=== PATIENT | male | born 1975 | race Caucasian/White ===

== ENCOUNTER → 2017-05-25 | Outpatient (CLI) | payer OTHER ==
[~2017-05-25] MED LIST: ALT/10 PO; AMLH/550 PO; AMLO10TA2 PO; ASPI81TA28 PO; FLX10 PO; METO100T14 PO
== END | disposition home or self-care (01) ==
LOC: C.LAB 13:27
PROVIDERS: ATTEND Physician Assistant
DX: R07.9 Chest pain, unspecified (principal)

== ENCOUNTER → 2017-09-24 | Outpatient (CLI) | payer OTHER ==
--- NOTE | 2017-09-24 09:21 | DIAGNOSTIC IMAGING REPORT ---
L LOWER EXT JOINT WITHOUT CLINICAL HISTORY: 42 years-old Male presenting with LEFT HIP PAIN. TECHNIQUE: Multisequence, multiplanar MR imaging of the left hip was performed without the use of intravenous contrast. IV contrast: None. COMPARISON: Plain radiographs from 09/21/2017. FINDINGS: Localizer images: Unremarkable. No bony edema. No focal articular cartilage defect. Increased signal intensity along the superior aspect of the left labrum suggests degenerative change. Trace hip joint fluid, which is symmetric. Normal muscle bulk and muscle signal intensity. Degenerative changes of the lower lumbar spine. Sacroiliac joints normal. Limited ensure pelvic evaluation demonstrates normal prostate and seminal vesicles. Bilateral T2 hyperintense, T1 hypointense masses or collections medial to the external iliac veins. The collection on the right measures 4.1 x 2.1 cm, and the collection on the left measures 5.3 x 2.4 cm. No contrast was administered to determine if these are cystic or solid. Multiple additional prominent external iliac lymph nodes evident. These abnormalities may represent enlarged lymph nodes versus fluid collections. No inguinal lymphadenopathy. IMPRESSION: 1. Suspected degenerative changes of the superior labrum of the left hip. No other significant abnormality of the left hip. 2. Bilateral external iliac pathologically enlarged lymph nodes versus fluid collections. Given the presence of several additional prominent lymph nodes, these are suspected to also represent lymph nodes. Correlate for underlying malignancy or lymphoproliferative disease. Confirmation of their solid nature recommended with contrast-enhanced CT. These may potentially be amenable to ultrasound or CT-guided biopsy. The report will be called/faxed according to standard departmental protocol. Electronically signed by: Tony Gaviria M.D. 09/24/2017 9:20 AM Dictated Date/Time: 09/24/2017 9:12 AM
== END | disposition home or self-care (01) ==
LOC: C.MRIBC 08:21
PROVIDERS: ATTEND Orthopaedic Surgery
DX: M25.552 Pain in left hip (principal); R59.1 Generalized enlarged lymph nodes

== ENCOUNTER → 2017-11-18 | Outpatient (CLI) | payer OTHER ==
--- NOTE | 2017-11-18 10:40 | DIAGNOSTIC IMAGING REPORT ---
FLUOROSCOPIC GUIDED LEFT HIP STEROID INJECTION FLUOROSCOPY TIME: 12 seconds. HISTORY: Left hip pain.. PROCEDURE: After obtaining written informed consent, the patient was placed supine on the fluoroscopy table. A suitable site for needle insertion was marked using fluoroscopic guidance. The left hip was prepped and draped in the usual sterile fashion. 1% lidocaine was used for skin, subcutaneous and deep soft tissue anesthesia. Under intermittent fluoroscopic guidance, a 22 gauge x 3.5 inch spinal needle was inserted into the left hip joint. 2 cc of Optiray 300 was injected to confirm the intra-articular location. This is followed by a mixture of 5cc of 0.5% bupivacaine and 2 cc of betamethasone at the request of the referring physician. The needle was then removed. There were no apparent complications. IMPRESSION: Fluoroscopic-guided left hip steroid injection without immediate complication. Electronically signed by: Kaiden Ahumada M.D. 11/18/2017 10:38 AM Dictated Date/Time: 11/18/2017 10:38 AM
== END | disposition home or self-care (01) ==
LOC: C.RADBC 09:48
PROVIDERS: ATTEND Orthopaedic Surgery
DX: M16.12 Unilateral primary osteoarthritis, left hip (principal)

== ENCOUNTER → 2018-03-23 | Outpatient (CLI) | payer OTHER ==
[~2018-03-23] MED LIST changes: +ATOR-54 PO
--- NOTE | 2018-03-24 06:27 | SPLIT NIGHT TECHNICIAN REPORT ---
[facility] Split Night Polysomnogram - Meteorological Technician Report Study date: 03/23/2018 Referring Physician: Dr. Purvi Mcintyre Name: GABRIELLE LUEVANO Meteorological Technician: MYA Santos. Date of : 1975 Height: 42 years, Height 5' 9.29" Sex: Male Weight: 328 lbs Age: 42 Neck Circum: 20 inches BMI: Medications: 48.03 Amlodipine 10 mg, Aspirin 81 mg, Lipitor 10 mg, Flexeril 10 mg, Metoprolol 50 mg, Pantoprazole 40 mg, Ramipril 10 mg, Patient History 42 yr. old male here for a modified sleep study if AHI >10. Patient is currently on 12 CWP. Patient complains of PLMD. He has gained weight since his last study. ESS 03/02. Parameters Monitored NPSG: E1-M2, E2-M1, Fp1-M2, Fp2-M1, F3-M2, F4-M2, F4-M1, C3-M2, C4-M2, C4-M1, O1-M2, O2-M2, O2-M1, T3-M2, T4-M1, P3-M2, P4-M1, CHIN1, CHIN2, HR, EKG, Legs, PFLOW, SNOR, FLOW, CFLOW, Tidal Volume, THOR, ABDO, SpO2, PLTH, CPRESS, ETCO2 Wave, ETCO2, pH SLEEP SUMMARY DATA DIAGNOSTIC TREATMENT Lights Out: 9:39:34 PM 11:47:34 PM Lights On: 11:40:34 PM 6:13:04 AM Total Recording Time (TRT): 121.5 min. 386.0 min. Total Sleep Time (TST): 75.5 min. 366.5 min. NREM Time: 75.5 min. 274.5 min. REM Time: 0.0 min. 92.0 min. Sleep Period Time (SPT): 101.5 min. 381.0 min. Sleep Efficiency (SE): 62 % 95 % Sleep Latency: 15.5 min. 4.5 min. Arousal Index: 25.4 5.7 PAP Treatment Levels: 6, 7, 8, 9, 10, 11, 12, 13, 14, 15 * Optimal Pressure(s) SLEEP STAGING DATA DIAGNOSTIC TREATMENT Duration (min) TST % Duration (min) TST % Stage Wake: 46.0 min. -- 18.5 min. -- WASO: 30.0 min. -- 14.5 min. -- NREM: 75.5 min. 100 % 274.5 min. 75 % Stage N1: 20.5 min. 27 % 15.0 min. 4 % Stage N2: 55.0 min. 73 % 156.0 min. 43 % Stage N3: 0.0 min. 0 % 103.5 min. 28 % REM: 0.0 min. 0 % 92.0 min. 25 % POSITIONAL DATA Event Count Index Event Count Index Supine: N/A N/A 36 9.5 Supine NREM: N/A N/A 4 1.4 Supine REM: N/A N/A 32 31 Non-Supine: 103 81.9 9 3.9 Non-Supine NREM: 103 81.9 3 1.7 Non-Supine REM: N/A N/A 6 11.6 AROUSAL SUMMARY DATA: Event Count Index Event Count Index Apnea Arousals: 1 3.2 0 0.2 Hypopnea Arousals: 8 6.4 0 0.0 Snore Arousals: 9 7.2 19 3.1 PLM Arousals: 10 7.9 1 0.2 Non-Specific Arousals: 1 0.8 4 0.7 Total Arousals: 32 25.4 35 5.7 MYOCLONUS (PLM) Event Count Index Event Count Index PLM: 30 23.8 58 9.5 PLM AROUSAL: 10 7.9 1 0.2 PLM W/O AROUSAL 30 23.8 57 9.3 PLM W/RESP EVENT 5 0.0 0 0.0 MYOCLONUS (PLM) Event Count Index Event Count Index LM: 4 46.1 25 4.1 LM AROUSAL: 4 3.2 11 1.8 LM W/O AROUSAL LM W/RESP EVENT LM NON SPECIFIC 36 28.6 70 11.5 HEART RATE DATA DIAGNOSTIC TREATMENT Sleep (bpm): 69 63 REM (bpm): N/A 89 NREM (bpm): 89 90 Tachycardia Count: 0 0 Tachycardia Duration: 0.00 0 Bradycardia Count: 0 0 Bradycardia Duration: 0.00 0 DIAGNOSTIC PORTION TREATMENT PORTION RESPIRATORY DATA Event Count Index Event Count Index AHI: -- 81.9 -- 7.4 RDI: -- 81.9 -- 7 Obstructive Apnea: 4 3.2 0 0.0 Central Apnea: 0 0.0 1 0.2 Mixed Apnea: 0 0.0 0 0.0 Hypopnea: 99 78.7 44 7.2 RERA: 0 0.0 0 0.0 Total Apneas: 4 3.2 1 0.2 RESPIRATORY DATA REM NREM SLEEP REM NREM SLEEP Supine Position: Obstructive Apneas: N/A N/A N/A 0 0 0 Central Apneas: N/A N/A N/A 0 1 1 Mixed Apneas: N/A N/A N/A 0 0 0 Hypopneas: N/A N/A N/A 32 3 35 RERA N/A N/A N/A 0 0 0 Total Supine Events: N/A N/A N/A 32 4 36 Supine AHI: N/A N/A N/A 31 1.4 9.5 Supine RDI: N/A N/A N/A 31.5 1.4 9.5 REM NREM SLEEP REM NREM SLEEP Non-Supine Position: Obstructive Apneas: N/A 4 4 0 0 0 Central Apneas: N/A 0 0 0 0 0 Mixed Apneas: N/A 0 0 0 0 0 Hypopneas: N/A 99 99 6 3 9 RERA N/A 0 0 0 0 0 Total Supine Events: N/A 103 103 6 3 9 Supine AHI: N/A 81.9 81.9 11.6 1.7 3.9 Supine RDI: N/A 81.9 81.9 11.6 1.7 3.9 OXYGEN DESTAURATION DATA: Event Count Index Event Count Index REM Desaturations: N/A N/A 39 25.4 NREM Desaturations: 125 99.3 12 2.6 SNORE DATA DIAGNOSTIC TREATMENT Snore Time: 11.3 11:52:04 PM Snore TST%: 3 7 Snore Arousal Count: 9 19 Snore Arousal Index: 7.2 3.1 Desaturation Event Summary: Minimum %SpO2 Event Count Mean/Min/Max Duration(sec.) Desaturation Index % Time In Bed > 90 151 19.1 / 4.5 / 60.0 38.1 46.9 86 - 90 139 15.8 / 4.5 / 57.8 33.3 49.5 81 - 85 2 25.5 / 9.0 / 42.0 7.0 3.4 76 - 80 0 N/A 0.0 0.2 71 - 75 0 N/A 0.0 0.0 66 - 70 0 N/A 0.0 0.0 61 - 65 0 N/A 0.0 0.0 56 - 60 0 N/A 0.0 0.0 51 - 55 0 N/A 0.0 0.0 < 50 0 N/A 0.0 0.0 OXYGEN SATURATION DATA DIAGNOSTIC TREATMENT SpO2 Mean Sleep: 89 % 90 % SpO2 Mean REM: N/A % 89 % SpO2 Mean NREM: 89 % 90 % SpO2 Minimum Sleep: 81 % 78 % SpO2 Minimum REM: N/A % 78 % SpO2 Minimum NREM: 81 % 84 % Time Below 90% (TST): 38.6 126.6 Time Below 88% (TST): 20.8 43.8 Total REM NREM Awake <50% 0.0 min. 0.0 min. 0.0 min. 0.0 min. 51 - 60% 0.0 min. 0.0 min. 0.0 min. 0.0 min. 61 - 70% 0.0 min. 0.0 min. 0.0 min. 0.0 min. 71 - 80% 0.8 min. 0.8 min. 0.0 min. 0.0 min. 81 - 90% 267.7 min. 58.6 min. 188.6 min. 20.6 min. 91 - 100% 237.5 min. 32.6 min. 161.4 min. 43.4 min. Average 90 89 90 91 Minimum SpO2 78 78 81 83 Desaturation Event Index 23.8 25.4 23.5 26.3 # Desat. Events below 89% 171 31 122 18 Time(%) with Saturation below 89% 22.6 5.9 15.5 1.3 Time(min.) with Saturation below 89% 114.5 30.0 78.3 6.3 Recording Meteorological Technician Comments: Mr. Luevano slept in the right, left, and supine positions. No cardiac arrhythmia. PLMs noted. No bruxism noted. Snoring was noted and scored as a 3 on a scale of 0 through 5. (0=no snoring, 5=snoring loud enough to be heard through a closed door or down the [address] way) At 11:47, Mr. Luevano met specific Split-Night criteria during the diagnostic portion of this study. CPAP was initiated at +6 CMH2O and up-titrated to a level of +15 CMH2O No Cflex. A large ResMed, was used during titration. Mr. Luevano awoke to use the restroom once during the night. Mr. Luevano stated, I liked the mask I used last night The final report will be interpreted and signed by a sleep physician. The completed physician report will then be placed in the patient medical record. Therapy Event: Therapy (cm H20) 0 6 7 8 9 10 Total Time at Pressure (min.) 121.0 52.6 33.0 69.5 7.7 10.1 TST at Pressure (min.) 75.5 45.1 31.0 69.5 7.7 10.1 # Periods 1 1 1 1 1 1 Sleep Onset (min.) 15.5 4.5 0.0 0.0 0.0 0.0 REM Onset (min.) N/A N/A 10.4 57.5 0.0 0.0 Sleep Efficiency % 62 85 93 100 100 100 Wakefulness (%) 37.6 14.3 6.1 0.0 0.0 0.0 Wakefulness (min.) 45.5 7.5 2.0 0.0 0.0 0.0 NREM 1 (%) 16.9 6.7 4.5 0.0 0.0 0.0 NREM 1 (min.) 20.5 3.5 1.5 0.0 0.0 0.0 NREM 2 (%) 45.5 33.3 25.9 35.9 0.0 0.0 NREM 2 (min.) 55.0 17.5 8.5 25.0 0.0 0.0 NREM 3 (%) 0.0 45.8 31.7 46.8 0.0 0.0 NREM 3 (min.) 0.0 24.1 10.4 32.5 0.0 0.0 REM (%) 0.0 0.0 31.8 17.3 100.0 100.0 REM (min.) 0.0 0.0 10.5 12.0 7.7 10.1 # Arousals 32 2 15 5 0 0 Arousal Index 25.4 2.7 29.0 4.3 0.0 0.0 # Snore 468 405 107 728 25 4 Snore Index 371.9 539.4 207.2 628.8 194.9 23.7 AHI 81.9 0.0 3.9 5.2 39.0 23.7 AHI Supine N/A N/A 6.0 5.2 39.0 23.7 AHI Non-Supine 81.9 0.0 2.9 N/A N/A N/A NREM AHI 81.9 0.0 2.9 1.0 N/A N/A REM AHI N/A N/A 5.7 25.0 39.0 23.7 RDI 81.9 0.0 3.9 5.2 39.0 23.7 # Obstructive 4 0 0 0 0 0 # Central Ap 0 0 0 0 0 0 # Mixed 0 0 0 0 0 0 # Hypopneas 99 0 2 6 5 4 RERAS 0 0 0 0 0 0 Total Respiratory Events 103 0 2 6 5 4 Time Below SpO2 89.00% (min.) 28.4 0.0 9.4 52.7 4.9 3.2 Mean NREM SpO2 (%) 89 90 89 88 N/A N/A Mean REM SpO2 (%) N/A N/A 89 87 87 89 Mean Sleep SpO2 (%) 89 90 89 88 87 89 Min NREM SpO2 (%) 81 89 86 84 N/A N/A Min REM SpO2 (%) N/A N/A 83 78 78 84 Position Supine (min.) 0.0 0.0 10.0 69.5 7.7 10.1 Position Non-supine (min.) 75.5 45.1 20.9 0.0 0.0 0.0 LM Index Sleep 69.9 5.3 104.5 11.2 15.6 0.0 LM Index NREM 69.9 5.3 87.8 13.6 N/A N/A LM Index REM N/A N/A 137.1 0.0 15.6 0.0 Mean Heart Rate (bpm) 69 64 66 66 64 63 Min Heart Rate (bpm) 57 57 57 57 52 55 Therapy (cm H20) 11 12 13 14 15 Total Time at Pressure (min.) 36.2 45.2 14.1 69.5 47.1 TST at Pressure (min.) 36.2 45.2 13.6 66.5 41.6 # Periods 1 1 1 1 1 Sleep Onset (min.) 0.0 0.0 0.0 0.0 0.0 REM Onset (min.) 0.0 29.0 0.0 54.1 0.0 Sleep Efficiency % 100 100 96 95 88 Wakefulness (%) 0.0 0.0 3.5 4.3 11.7 Wakefulness (min.) 0.0 0.0 0.5 3.0 5.5 NREM 1 (%) 0.0 0.0 7.1 4.3 12.7 NREM 1 (min.) 0.0 0.0 1.0 3.0 6.0 NREM 2 (%) 63.5 15.5 2.7 69.3 56.2 NREM 2 (min.) 23.0 7.0 0.4 48.1 26.5 NREM 3 (%) 29.0 48.6 0.0 0.0 8.5 NREM 3 (min.) 10.5 22.0 0.0 0.0 4.0 REM (%) 7.4 35.9 86.7 22.1 10.9 REM (min.) 2.7 16.3 12.2 15.4 5.1 # Arousals 1 2 0 5 5 Arousal Index 1.7 2.7 0.0 4.5 7.2 # Snore 5 4 2 6 4 Snore Index 8.3 5.3 8.8 5.4 5.8 AHI 6.6 14.6 22.0 5.4 2.9 AHI Supine 6.6 14.6 22.0 0.0 0.0 AHI Non-Supine N/A N/A N/A 5.7 11.1 NREM AHI 1.8 2.1 0.0 3.5 0.0 REM AHI 67.0 36.9 24.5 11.7 23.3 RDI 6.6 14.6 22.0 5.4 2.9 # Obstructive 0 0 0 0 0 # Central Ap 0 1 0 0 0 # Mixed 0 0 0 0 0 # Hypopneas 4 10 5 6 2 RERAS 0 0 0 0 0 Total Respiratory Events 4 11 5 6 2 Time Below SpO2 89.00% (min.) 0.8 4.3 4.3 0.1 0.0 Mean NREM SpO2 (%) 91 91 93 92 91 Mean REM SpO2 (%) 90 89 89 92 92 Mean Sleep SpO2 (%) 90 90 90 92 91 Min NREM SpO2 (%) 88 86 91 90 89 Min REM SpO2 (%) 85 84 81 88 90 Position Supine (min.) 36.2 45.2 13.6 3.6 30.9 Position Non-supine (min.) 0.0 0.0 0.0 62.9 10.8 LM Index Sleep 1.7 2.7 0.0 2.7 5.8 LM Index NREM 1.8 2.1 0.0 3.5 4.9 LM Index REM 0.0 3.7 0.0 0.0 11.7 Mean Heart Rate (bpm) 63 62 62 60 61 Min Heart Rate (bpm) 55 54 54 51 53
--- NOTE | 2018-03-26 16:31 | POLYSOMNOGRAPH REPORT ---
CLINICAL DATA: A 42-year-old male with BMI of [address] Purvi Mcintyre for a split night sleep study. He is currently on CPAP 12 cm of water pressure. He complains of PLMD. SLEEP ARCHITECTURE: For the diagnostic portion of the study, sleep period time was 101.5 minutes. Total sleep time was 75.5 minutes, all non-REM sleep. Sleep latency was 15.5 minutes. Sleep efficiency was 62%. Sleep consisted of stage N1 27% and stage N2 73%. For the treatment portion of the study, sleep period time was 381 minutes. Total sleep time was 366.5 minutes divided between 274.5 minutes of non-REM sleep and 92 minutes of REM sleep. Sleep latency was 4.5 minutes. Sleep efficiency was 95%. Sleep consisted of stage N1 4%, stage N2 43%, stage N3 28%, and REM 25%. AROUSAL DATA: Prior to treatment, 32 arousals were recorded for an index of 25.4 per hour. During treatment, 35 arousals were recorded for an index of 5.7 per hour. PERIODIC LIMB MOVEMENTS DATA: Prior to treatment, 36 limb movements during sleep were noted for an index of 28.6 per hour. During treatment, 70 limb movements during sleep were noted for an index of 11.5 per hour. EKG: Heart rates ranged from 63 to 90 beats per minute. No arrhythmias were noted. RESPIRATORY DATA: Severe sleep apnea was documented prior to treatment. The diagnostic AHI was 82. There were 4 obstructive apneic episodes and 99 hypopneic episodes. The average AHI during treatment was 7.4. There was 1 central apneic episode and 44 hypopneic episodes. OXIMETRY DATA: Nocturnal hypoxemia seen. Oxygen lalita was 78% during REM sleep during treatment. The mean saturation during treatment was 90%. REFRIGERATION UNIT REPAIRER'S COMMENTS AND TREATMENT SUMMARY: The patient slept in the right, left, and supine positions. Snoring was moderate, rated 3 on a scale of 1-5. The patient used a large ResMed face mask. He was titrated up to 15 cm water pressure. At this final pressure setting, he slept for 41.6 minutes with an AHI of 2.9. IMPRESSION: Very severe sleep apnea/hypopnea with a diagnostic apnea/hypopnea index of 82, corrected with CPAP of 15 cm of water pressure. RECOMMENDATIONS: The patient's CPAP should be increased to 15 cm of water pressure. [facility]
== END | disposition home or self-care (01) ==
LOC: C.NEUR 20:00
PROVIDERS: ATTEND Student in an Organized Health Care Education/Training Program
DX: G47.30 Sleep apnea, unspecified (principal)